=== PATIENT | male | born 1970 | race Caucasian/White ===

== ENCOUNTER 2020-06-22 13:05 | Emergency (ER) | payer OTHER, BC ==
[~2020-06-22] VITALS: Ht 180.3 cm; Wt 90.7 kg
[~2020-06-22 13:05] MED LIST: DIAZ5 PO; HYDR1TAB94 PO; MECL25 PO
== END 2020-06-22 13:35 | disposition home or self-care (01) ==
LOC: ER 13:05
DX: M75.52 Bursitis of left shoulder (principal)
CPT/HCPCS: 99283